=== PATIENT | male | born 1960 | race African-American/Black ===

== ENCOUNTER 2017-01-12 20:38 | Emergency (ER) | payer OTHER, MEDICAID ==
[~2017-01-12] VITALS: Ht 180.3 cm; Wt 79.0 kg
[2017-01-12] MEDS ORDERED: IBUPROFEN 400MG TABLET PO ONE (22:00)
[2017-01-12 23:33] VITALS: BP 128/76
== END 2017-01-13 00:32 | disposition home or self-care (01) ==
LOC: ER 20:55
DX: M25.561 Pain in right knee (principal); F20.9 Schizophrenia, unspecified
CPT/HCPCS: 99283; L1830